=== PATIENT | male | born 1990 | race Caucasian/White ===

== ENCOUNTER 2019-11-19 17:54 | Emergency (ER) | payer MEDICAID, OTHER ==
--- NOTE | 2019-11-19 20:48 | ED ---
Throat Pain/Nasal Congestion - HPI Summary HPI Summary: The patient is a 29-year-old male presenting [place] [facility] with a chief complaint of excruciating right lower molar pain onset around 1500 today. He reports that the pain initially began last week, and he was placed on Amoxicillin to treat for an infection which helped to improve his pain until today when he had sudden shooting pain in the right mandible. He describes the pain as a sensation of being punched, rated 10/10 in severity. Eating aggravates the pain. He denies any fevers or sore throat. He has not taken any medications today for the pain. He has concern for dry rot because of his smoking history, and the tooth has an old fracture. Past medical history is significant for Crohns Disease, seizures, psychiatric disorders. Current heavy smoker, occasional alcohol use, no substance use. Medications reviewed. Allergies noted. - History of Current Complaint Chief Complaint: EDDentalPain Time Seen by Provider: 11/19/19 20:35 Hx Obtained From: Patient Onset/Duration: Sudden Onset, Still Present Severity: Severe Associated Signs And Symptoms: Positive: Negative Cough: None Related History: Other (Noted In Comments) - fracture in tooth - Allergies/Home Medications Allergies/Adverse Reactions: Allergies Allergy/AdvReac Type Severity Reaction Status Date / Time tramadol Allergy Shakes Verified 11/19/19 20:23 Home Medications: Home Medications Gabapentin CAP(*) [Neurontin 100 mg CAP(*)] 900 mg PO DAILY 11/19/19 [History Confirmed 11/19/19] Gabapentin CAP(*) [Neurontin 100 mg CAP(*)] 900 mg PO DAILY 11/19/19 [History Confirmed 11/19/19] buPROPion SR TAB* [Wellbutrin SR TAB*] 1 tab PO DAILY 11/19/19 [History Confirmed 11/19/19] risperiDONE [Risperidone] 3 mg PO DAILY 11/19/19 [History Confirmed 11/19/19] PMH/Surg Hx/FS Hx/Imm Hx Endocrine/Hematology History: Denies: Hx Diabetes Cardiovascular History: Denies: Hx Congestive Heart Failure, Hx Hypercholesterolemia, Hx Hypertension GI History: Reports: Hx Crohn's Disease Neurological History: Reports: Hx Seizures - pt states he has had seizures in the past due to stress Psychiatric History: Reports: Hx Anxiety, Hx Depression, Hx Schizophrenia, Hx Bipolar Disorder, Hx Suicide Attempt, Hx of Violent Episodes Against Others Denies: Hx Eating Disorder - Surgical History Surgical History: None Surgery Procedure, Year, and Place: none Infectious Disease History: No Infectious Disease History: Denies: Traveled Outside the [place] in Last 30 Days - Family History Known Family History: Negative: Hypertension, Diabetes - Social History Alcohol Use: Occasionally Hx Substance Use: No Substance Use Type: Reports: None Hx Tobacco Use: No Smoking Status (MU): Heavy Every Day Tobacco Smoker Review of Systems Negative: Fever Positive: Dental Pain - right lower molar. Negative: Sore Throat All Other Systems Reviewed And Are Negative: Yes Physical Exam - Summary Physical Exam Summary: VITAL SIGNS: Reviewed. GENERAL: Patient is a well-developed and nourished male who is lying comfortable in the stretcher. Patient is not in any acute respiratory distress. HEAD AND FACE: No signs of trauma. No ecchymosis, hematomas or skull depressions. No sinus tenderness. EYES: PERRLA, EOMI x 2, No injected conjunctiva, no nystagmus. EARS: Hearing grossly intact. Ear canals and tympanic membranes are within normal limits. MOUTH: Multiple dental carries, Tooth number 32 has a large cavity and fracture. NECK: Supple, trachea is midline, no adenopathy, no JVD, no carotid bruit, no c- spine tenderness, neck with full ROM. CHEST: Symmetric, no tenderness at palpation. LUNGS: Clear to auscultation bilaterally. No wheezing or crackles. CVS: Regular rate and rhythm, S1 and S2 present, no murmurs or gallops appreciated. ABDOMEN: Soft, non-tender. No signs of distention. No rebound, no guarding, and no masses palpated. Bowel sounds are normal. EXTREMITIES: FROM in all major joints, no edema, no cyanosis or clubbing. NEURO: Alert and oriented x 3. No acute neurological deficits. Speech is normal and follows commands. SKIN: Dry and warm. Triage Information Reviewed: Yes Vital Signs On Initial Exam: Initial Vitals Temp Pulse Resp BP Pulse Ox 99.2 F 75 16 168/82 95 11/19/19 18:04 11/19/19 18:04 11/19/19 18:04 11/19/19 18:04 11/19/19 18:04 Vital Signs Reviewed: Yes Procedures - Sedation Patient Received Moderate/Deep Sedation with Procedure: No Diagnostics - Vital Signs Vital Signs Temp Pulse Resp BP Pulse Ox 02/10/20 18:04 99.2 F 75 16 168/82 95 - Laboratory Lab Statement: Any lab studies that have been ordered have been reviewed, and results considered in the medical decision making process. EENT Course/Dx - Course Assessment/Plan: The patient is a 29-year-old male presenting [place] [facility] [place] with a chief complaint of excruciating right lower molar pain onset around 1500 today. He reports that the pain initially began last week, and he was placed on Amoxicillin to treat for an infection which helped to improve his pain until today when he had sudden shooting pain in the right mandible. He describes the pain as a sensation of being punched, rated 10/10 in severity. Eating aggravates the pain. He denies any fevers or sore throat. He has not taken any medications today for the pain. He has concern for dry rot because of his smoking history, and the tooth has an old fracture. Past medical history is significant for Crohns Disease, seizures, psychiatric disorders. Current heavy smoker, occasional alcohol use, no substance use. Medications reviewed. Allergies noted. Physical exam reveals multiple dental carries in the mouth, and specifically tooth number 32 has a large cavity and fracture. In the ED course, the patient was started on Augmentin, and he was given Toradol and Grimes for pain. I discussed all the results with the patient, and the patient understands and agrees with the plan for discharge. Patient is hemodynamically stable. Patient is discharged with follow up with his PCP in 2-3 days. He will also follow up with a dentist. He is given a prescription for Augmentin and Grimes. He is advised to stop taking the Amoxicillin. Patient agreeable with plan. Patient has no other complaints at this time. - Diagnoses Provider Diagnoses: Pain, dental Discharge ED - Sign-Out/Discharge Documenting (check all that apply): Patient Departure - Patient will be discharged home. - Discharge Plan Condition: Stable Disposition: HOME Prescriptions: Amoxicillin/Clavulanate TAB* [Augmentin TAB 875*] 875 mg PO BID #20 tab HYDROcodone/ACETAMIN 5-325 MG* [Grimes 5-325 TAB*] 1 tab PO Q8H PRN #10 tab MDD 4 PRN Reason: Pain - Severe Patient Education Materials: Toothache (ED) Referrals: [facility] [Outside] - 3 Days Additional Instructions: Please take your new antibiotic as prescribed. Stop taking the Amoxicillin you were placed on last week. We have also given you a prescription for a medication for pain control. We have given you dental referrals who may be able to see you before your scheduled appointment later this month. We have also given you a referral for a primary care provider. Return to the emergency department for any new or worsening symptoms. - Billing Disposition and Condition Condition: STABLE Disposition: Home - Attestation Statements Document Initiated by Milena: Yes Documenting Scribe: Pauline Meadows Provider For Whom Milena is Documenting (Include Credential): Dr. Erwin Leslie MD Scribe Attestation: Pauline Gunn scribed for Dr. Erwin Leslie MD on 11/21/19 at 0248. Scribe Documentation Reviewed: Yes Provider Attestation: The documentation as recorded by the Pauline quick accurately reflects the service I personally performed and the decisions made by me, Dr. Erwin Leslie MD Status of Scribe Document: Viewed
[2019-11-19] MEDS ORDERED: Ketorolac *IM* INJ* 60 MG/2 ML VIAL IM ONE (20:58)
[2019-11-19] MEDS ORDERED: HYDROcodone/ACETAMIN 5-325 MG* 1 TAB PO ONE (20:58)
[2019-11-19] MEDS ORDERED: Amoxicillin/Clavulanate TAB* 875 MG PO ONE (20:58)
[2019-11-19 21:27] VITALS: BP 148/86
== END 2019-11-19 21:26 | disposition home or self-care (01) ==
LOC: ED 17:54
DX: K08.89 Other specified disorders of teeth and supporting structures (principal); K02.9 Dental caries, unspecified; R56.9 Unspecified convulsions; F20.9 Schizophrenia, unspecified; F31.9 Bipolar disorder, unspecified; Z88.5 Allergy status to narcotic agent; Z79.899 Other long term (current) drug therapy; F17.200 Nicotine dependence, unspecified, uncomplicated
CPT/HCPCS: 96372; 99282; A9270-GY; J1885